=== PATIENT | female | born 1955 | race Caucasian/White ===

== ENCOUNTER 2023-08-31 16:11 | Emergency (ER) | payer OTHER, MEDICAID, SELFPAY ==
[2023-08-31] VITALS (22 sets, daily range): BP systolic 75–116; BP diastolic 46–76; PULSE 50–85; RESP 15–23; TEMP 36.9; O2SAT 97–100; BMI 45.6
--- NOTE | 2023-08-31 16:24 | ED_ITS ---
HPI - Abdominal Pain <Josias Gonzalez PA-C - Last Filed: 09/02/23 15:26> General Chief Complaint: Nausea/Vomiting/Diarrhea Stated Complaint: intestinal parasite/ Time Seen by Provider: 08/31/23 16:17 History of Present Illness HPI narrative: This is a 67-year-old female presents emergency department due to Related Data Home Medications Medication Instructions Recorded Confirmed amlodipine 10 mg tablet 10 mg PO DAILY 08/31/23 08/31/23 aspirin 81 mg chewable tablet 81 mg PO DAILY 08/31/23 08/31/23 (Aspirin Childrens) atorvastatin 40 mg tablet 40 mg PO DAILY 08/31/23 08/31/23 carvedilol 25 mg tablet 50 mg PO BID 08/31/23 08/31/23 losartan 50 mg tablet 50 mg PO BID 08/31/23 08/31/23 omeprazole 20 mg capsule,delayed 20 mg PO BID 08/31/23 08/31/23 release paroxetine HCl 30 mg tablet 60 mg PO DAILY 08/31/23 08/31/23 spironolactone 25 mg tablet 25 mg PO DAILY 08/31/23 08/31/23 Allergies Allergy/AdvReac Type Severity Reaction Status Date / Time codeine Allergy Verified 08/31/23 16:22 <Joleen Matthew DO - Last Filed: 09/03/23 09:53> History of Present Illness HPI narrative: Patient 67-year-old female history of aortic dissection 3 years ago and has been stable, hypertension, depression presents today with ongoing diarrhea. She reports that she has had diarrhea for about 3 months. She says that is not uncommon for her. However over the last 2 weeks she had increased stool but is still only going once a day. She says it has been yellow. She has a fever 2 weeks ago but is afebrile now. She has no abdominal pain nausea or vomiting. Many years ago about 40 years ago she had Giardia but is unclear of the circumstances on how she got it. She has not recently been on antibiotics. She denies any dizziness lightheadedness shortness of breath or chest pain. She initially had a normal blood pressure however while sitting in the ED for 45 minutes blood pressure decreased to 79/53 and remained in the 70s. She is awake alert oriented. She has absolutely no symptoms. She reports that she was in her PCP office on June 27 she has paperwork from that visit and that has a blood pressure of 68/30. She reports that the PCP gave her cracker and let her walk out of there. Review of Systems <Josias Gonzalez PA-C - Last Filed: 09/02/23 15:26> Review of Systems Narrative: GENERAL: Denies chills, fatigue, malaise, fever, sweats. HEENT: Denies sinus pain, ear pain, sore throat, difficulty swallowing, dizziness. RESPIRATORY: Denies dyspnea, cough, wheezing, hemoptysis, sputum. CARDIOVASCULAR: Denies chest pain, palpitations, orthopnea, edema, GASTROINTESTINAL: Denies nausea, vomiting, abdominal pain, diarrhea, constipation, melena. : Denies dysuria, frequency, incontinence, hematuria, urinary retention. MUSCULOSKELETAL: denies weakness, joint pain, or bony pain SKIN: Denies rash, skin lesions, or other NEUROLOGIC: Denies weakness, headache, numbness, change in speech, confusion, seizures, incoordination. PSYCHIATRIC: No concerning psychosocial issues. 12 point review of systems is negative except for those stated above Patient History <Josias Gonzalez PA-C - Last Filed: 09/02/23 15:26> Social History Smoking Status: Unknown if ever smoked Exam <LYSSA Hightower Last Filed: 09/02/23 15:26> Narrative Exam Narrative: GENERAL: Well-developed patient, in mild distress. HEAD: Atraumatic. Normocephalic. EYES: Pupils equal round and reactive. Extraocular motions intact. No scleral icterus. No injection or drainage. ENT: Nose without bleeding, purulent drainage. Throat without erythema, tonsillar hypertrophy or exudate. Airway patent. NECK: Trachea midline. Non tender EXTREMITIES: No edema or joint tenderness. NEURO: AOx3. SKIN: No rash or erythema of visible areas Initial Vital Signs Initial Vital Signs: Vital Signs Temperature 98.5 F 08/31/23 16:13 Pulse Rate 85 08/31/23 16:13 Respiratory Rate 15 08/31/23 16:13 Blood Pressure 116/76 08/31/23 16:13 Pulse Oximetry 100 08/31/23 16:13 Oxygen Delivery Method Room Air 08/31/23 16:13 <Joleen Matthew DO - Last Filed: 09/03/23 09:53> Initial Vital Signs Initial Vital Signs: Vital Signs Temperature 98.5 F 08/31/23 16:13 Pulse Rate 85 08/31/23 16:13 Respiratory Rate 15 08/31/23 16:13 Blood Pressure 116/76 08/31/23 16:13 Pulse Oximetry 100 08/31/23 16:13 Oxygen Delivery Method Room Air 08/31/23 16:13 GENERAL alert pleasant well-appearing 67-year-old female HEENT: Head atraumatic,EOMI, pupils reactive, face symmetric, moist mucous membranes CARDIOVASCULAR: Regular rate and rhythm without murmurs, rubs or gallops. RESPIRATORY: Breath sounds equal bilaterally, no wheezes rales or rhonchi. ABDOMEN: Soft, nontender. Normoactive bowel sounds all 4 quadrants. No guarding or rebound. No pulsatile masses : No CVA tenderness EXTREMITIES: Normal range of motion, no clubbing or edema. Neurovascularly intact NEUROLOGICAL: Alert and oriented x4. SKIN: Warm, dry, no laceration, no petechiae, no rashes or lesions. <Dalila Corrigan MD - Last Filed: 08/31/23 19:46> Initial Vital Signs Initial Vital Signs: Vital Signs Temperature 98.5 F 08/31/23 16:13 Pulse Rate 85 08/31/23 16:13 Respiratory Rate 15 08/31/23 16:13 Blood Pressure 116/76 08/31/23 16:13 Pulse Oximetry 100 08/31/23 16:13 Oxygen Delivery Method Room Air 08/31/23 16:13 Course <Josias Gonzalez PA-C - Last Filed: 09/02/23 15:26> Orders Ordered: Discontinued Medications Sodium Chloride (Normal Saline 0.9%) 1,000 mls @ 1,000 mls/hr IV BOLUS ONE Stop: 08/31/23 18:16 Last Infusion: 08/31/23 18:39 Dose: Infused Documented By: Admin: 08/31/23 17:30 Dose: 1,000 mls/hr Documented By: SEKOU Vital Signs Vital signs: Vital Signs - 8 hr 08/31/23 16:13 08/31/23 16:41 08/31/23 16:41 Temperature 98.5 F Pulse Rate 85 60 Respiratory Rate 15 Blood Pressure 116/76 103/55 L Pulse Oximetry 100 97 Oxygen Delivery Method Room Air 08/31/23 17:00 08/31/23 17:00 08/31/23 17:02 Temperature Pulse Rate 54 L 57 L Respiratory Rate Blood Pressure 79/53 L Pulse Oximetry 97 97 Oxygen Delivery Method 08/31/23 17:02 08/31/23 17:04 08/31/23 17:04 Temperature Pulse Rate 58 L Respiratory Rate Blood Pressure 77/47 L 75/50 L Pulse Oximetry 97 Oxygen Delivery Method 08/31/23 17:07 08/31/23 17:07 08/31/23 17:15 Temperature Pulse Rate 60 53 L Respiratory Rate Blood Pressure 78/50 L Pulse Oximetry 98 98 Oxygen Delivery Method 08/31/23 17:30 08/31/23 17:31 08/31/23 17:31 Temperature Pulse Rate 52 L 51 L Respiratory Rate 16 23 Blood Pressure 97/52 L Pulse Oximetry 100 99 Oxygen Delivery Method 08/31/23 17:45 08/31/23 18:00 08/31/23 18:00 Temperature Pulse Rate 50 L 50 L Respiratory Rate 16 15 Blood Pressure 105/56 L Pulse Oximetry 100 100 Oxygen Delivery Method Room Air 08/31/23 18:15 08/31/23 18:30 08/31/23 18:31 Temperature Pulse Rate 50 L 50 L Respiratory Rate 16 15 Blood Pressure 111/58 L Pulse Oximetry 100 100 Oxygen Delivery Method 08/31/23 18:31 Temperature Pulse Rate 50 L Respiratory Rate 16 Blood Pressure Pulse Oximetry 100 Oxygen Delivery Method Room Air <Joleen Matthew, DO - Last Filed: 09/03/23 09:53> Orders Ordered: Discontinued Medications Sodium Chloride (Normal Saline 0.9%) 1,000 mls @ 1,000 mls/hr IV BOLUS ONE Stop: 08/31/23 18:16 Last Infusion: 08/31/23 18:39 Dose: Infused Documented By: Admin: 08/31/23 17:30 Dose: 1,000 mls/hr Documented By: SEKOU Vital Signs Vital signs: Vital Signs - 8 hr 08/31/23 16:13 08/31/23 16:41 08/31/23 16:41 Temperature 98.5 F Pulse Rate 85 60 Respiratory Rate 15 Blood Pressure 116/76 103/55 L Pulse Oximetry 100 97 Oxygen Delivery Method Room Air 08/31/23 17:00 08/31/23 17:00 08/31/23 17:02 Temperature Pulse Rate 54 L 57 L Respiratory Rate Blood Pressure 79/53 L Pulse Oximetry 97 97 Oxygen Delivery Method 08/31/23 17:02 08/31/23 17:04 08/31/23 17:04 Temperature Pulse Rate 58 L Respiratory Rate Blood Pressure 77/47 L 75/50 L Pulse Oximetry 97 Oxygen Delivery Method 08/31/23 17:07 08/31/23 17:07 08/31/23 17:15 Temperature Pulse Rate 60 53 L Respiratory Rate Blood Pressure 78/50 L Pulse Oximetry 98 98 Oxygen Delivery Method 08/31/23 17:30 08/31/23 17:31 08/31/23 17:31 Temperature Pulse Rate 52 L 51 L Respiratory Rate 16 23 Blood Pressure 97/52 L Pulse Oximetry 100 99 Oxygen Delivery Method 08/31/23 17:45 08/31/23 18:00 08/31/23 18:00 Temperature Pulse Rate 50 L 50 L Respiratory Rate 16 15 Blood Pressure 105/56 L Pulse Oximetry 100 100 Oxygen Delivery Method Room Air 08/31/23 18:15 08/31/23 18:30 08/31/23 18:31 Temperature Pulse Rate 50 L 50 L Respiratory Rate 16 15 Blood Pressure 111/58 L Pulse Oximetry 100 100 Oxygen Delivery Method 08/31/23 18:31 Temperature Pulse Rate 50 L Respiratory Rate 16 Blood Pressure Pulse Oximetry 100 Oxygen Delivery Method Room Air <Dalila Corrigan MD - Last Filed: 08/31/23 19:46> Orders Ordered: Discontinued Medications Sodium Chloride (Normal Saline 0.9%) 1,000 mls @ 1,000 mls/hr IV BOLUS ONE Stop: 08/31/23 18:16 Last Infusion: 08/31/23 18:39 Dose: Infused Documented By: Admin: 08/31/23 17:30 Dose: 1,000 mls/hr Documented By: SEKOU Vital Signs Vital signs: Vital Signs - 8 hr 08/31/23 16:13 08/31/23 16:41 08/31/23 16:41 Temperature 98.5 F Pulse Rate 85 60 Respiratory Rate 15 Blood Pressure 116/76 103/55 L Pulse Oximetry 100 97 Oxygen Delivery Method Room Air 08/31/23 17:00 08/31/23 17:00 08/31/23 17:02 Temperature Pulse Rate 54 L 57 L Respiratory Rate Blood Pressure 79/53 L Pulse Oximetry 97 97 Oxygen Delivery Method 08/31/23 17:02 08/31/23 17:04 08/31/23 17:04 Temperature Pulse Rate 58 L Respiratory Rate Blood Pressure 77/47 L 75/50 L Pulse Oximetry 97 Oxygen Delivery Method 08/31/23 17:07 08/31/23 17:07 08/31/23 17:15 Temperature Pulse Rate 60 53 L Respiratory Rate Blood Pressure 78/50 L Pulse Oximetry 98 98 Oxygen Delivery Method 08/31/23 17:30 08/31/23 17:31 08/31/23 17:31 Temperature Pulse Rate 52 L 51 L Respiratory Rate 16 23 Blood Pressure 97/52 L Pulse Oximetry 100 99 Oxygen Delivery Method 08/31/23 17:45 08/31/23 18:00 08/31/23 18:00 Temperature Pulse Rate 50 L 50 L Respiratory Rate 16 15 Blood Pressure 105/56 L Pulse Oximetry 100 100 Oxygen Delivery Method Room Air 08/31/23 18:15 08/31/23 18:30 08/31/23 18:31 Temperature Pulse Rate 50 L 50 L Respiratory Rate 16 15 Blood Pressure 111/58 L Pulse Oximetry 100 100 Oxygen Delivery Method 08/31/23 18:31 Temperature Pulse Rate 50 L Respiratory Rate 16 Blood Pressure Pulse Oximetry 100 Oxygen Delivery Method Room Air MDM - Abdominal Pain <Josias Gonzalez PA-C - Last Filed: 09/02/23 15:26> Lab Data 08/31/23 16:25 08/31/23 16:25 Labs: Lab Results 08/31/23 08/31/23 Range/Units 16:25 18:25 WBC 7.9 (4.5-11.0) X10^3/uL RBC 4.72 (4.0-5.2) X10^6/uL Hgb 13.5 (12.0-16.0) g/dL Hct 40.6 (36-46) % MCV 86.0 (80-100) fL MCH 28.6 (26-34) PG MCHC 33.2 (30-36) % RDW 15.1 H (11.6-14.8) % Plt Count 234 (150-400) X10^3/uL Neut % (Auto) 60.1 (50-75) % Lymph % (Auto) 27.0 (25-40) % [place] % (Auto) 6.6 (3-14) % Eos % (Auto) 4.6 H (2-4) % Baso % (Auto) 1.7 (0-2) % Neut # (Auto) 4800 (7123-0086) /uL Lymph # (Auto) 2100 (8639-9890) /uL [place] # (Auto) 500 (0-900) /uL Eos # (Auto) 400 (0-450) /uL Baso # (Auto) 100 (0-100) /uL Sodium 137 (137-145) mmol/L Potassium 4.1 (3.4-5.1) mmol/L Chloride 104 (98-107) mmol/L Carbon Dioxide 24 (22-32) mmol/L BUN 21 H (7-17) mg/dL Creatinine 1.45 H (0.52-1.04) mg/dL Estimated GFR 40 L (>60) mL/min BUN/Creatinine Ratio 14.5 (6-22) Glucose 115 H (80-110) mg/dL Lactate 2.6 H 1.1 (0.7-2.1) mmol/L Calcium 9.1 (8.4-10.2) mg/dL Total Bilirubin 0.9 (0.2-1.3) mg/dL AST 31 (14-36) IU/L ALT 33 (<35) IU/L Alkaline Phosphatase 76 (38-126) U/L Total Creatine Kinase 30 (30-135) U/L Troponin I < 0.012 (0.01-0.034) ng/mL Total Protein 7.6 (6.3-8.2) g/dL Albumin 4.2 (3.5-5.0) g/dL Globulin 3.4 (1.7-4.1) g/dL Albumin/Globulin Ratio 1.2 (1.0-2.8) MDM Narrative Medical decision making narrative: ED course: [ ] CC: [ ] Complicating co-morbidities: [ ] Data collected from: Previous notes Medical records reviewed: Patient has not been to this emergency department in the past. Differential considered, but not limited to: [ ] Exam documented above, pertinent findings include: [ ] Lab Test results independently reviewed as above. Pertinent findings: [ ] Imaging studies independently reviewed: [ ] Scores Used: None MIPS Elements: None Consultations: None Treatments: [ ] Re-evaluations: [ ] Discussion: Discussed plan with the patient was comfortable with the plan Diagnosis: [ ] Disposition: see below, along with detailed discharge instructions that have been reviewed with patient as well as indications for ED re-evaluation and additional outpatient follow up <Joleen DO Vipul - Last Filed: 09/03/23 09:53> Lab Data Labs: Lab Results 08/31/23 08/31/23 Range/Units 16:25 18:25 WBC 7.9 (4.5-11.0) X10^3/uL RBC 4.72 (4.0-5.2) X10^6/uL Hgb 13.5 (12.0-16.0) g/dL Hct 40.6 (36-46) % MCV 86.0 (80-100) fL MCH 28.6 (26-34) PG MCHC 33.2 (30-36) % RDW 15.1 H (11.6-14.8) % Plt Count 234 (150-400) X10^3/uL Neut % (Auto) 60.1 (50-75) % Lymph % (Auto) 27.0 (25-40) % [place] % (Auto) 6.6 (3-14) % Eos % (Auto) 4.6 H (2-4) % Baso % (Auto) 1.7 (0-2) % Neut # (Auto) 4800 (8664-5595) /uL Lymph # (Auto) 2100 (1580-1968) /uL [place] # (Auto) 500 (0-900) /uL Eos # (Auto) 400 (0-450) /uL Baso # (Auto) 100 (0-100) /uL Sodium 137 (137-145) mmol/L Potassium 4.1 (3.4-5.1) mmol/L Chloride 104 (98-107) mmol/L Carbon Dioxide 24 (22-32) mmol/L BUN 21 H (7-17) mg/dL Creatinine 1.45 H (0.52-1.04) mg/dL Estimated GFR 40 L (>60) mL/min BUN/Creatinine Ratio 14.5 (6-22) Glucose 115 H (80-110) mg/dL Lactate 2.6 H 1.1 (0.7-2.1) mmol/L Calcium 9.1 (8.4-10.2) mg/dL Total Bilirubin 0.9 (0.2-1.3) mg/dL AST 31 (14-36) IU/L ALT 33 (<35) IU/L Alkaline Phosphatase 76 (38-126) U/L Total Creatine Kinase 30 (30-135) U/L Troponin I < 0.012 (0.01-0.034) ng/mL Total Protein 7.6 (6.3-8.2) g/dL Albumin 4.2 (3.5-5.0) g/dL Globulin 3.4 (1.7-4.1) g/dL Albumin/Globulin Ratio 1.2 (1.0-2.8) ECG Data Interpretation: Sinus rhythm rate 55 PA interval [address] changes MDM Narrative Medical decision making narrative: ED course: [ ] CC: Diarrhea worse over the last 2 weeks Complicating co-morbidities: Aortic dissection Data collected from: Previous notes Medical records reviewed: Patient has not been to this emergency department in the past. Differential considered, but not limited to: [ ] Exam documented above, pertinent findings include: Abdomen soft nontender Lab Test results independently reviewed as above. Pertinent findings: Lactate 2.6, BUN 21 creatinine 1.45, glucose 115 potassium 4.1 Imaging studies independently reviewed: [ ] Scores Used: None MIPS Elements: None Consultations: None Treatments: IV fluids Re-evaluations: Blood pressure does improve with IV fluids Discussion: Discussed plan with the patient was comfortable with the plan Diagnosis: [ ] Disposition: see below, along with detailed discharge instructions that have been reviewed with patient as well as indications for ED re-evaluation and additional outpatient follow up Dr. Matthew-patient is presenting today with diarrhea 1 episode daily ongoing for 1 week. Initial blood pressure was normal however repeats do show a significant drop however she is completely asymptomatic. She has a documented previous blood pressure from her PCP offices of 68/30. I believe this is likely due to over medication with hypertension med. Lactate is slightly elevated. Patient signed out to Dr. Corrigan for follow-up lactate and blood pressure and final disposition <Dalila Corrigan MD - Last Filed: 08/31/23 19:46> Lab Data Labs: Lab Results 08/31/23 08/31/23 Range/Units 16:25 18:25 WBC 7.9 (4.5-11.0) X10^3/uL RBC 4.72 (4.0-5.2) X10^6/uL Hgb 13.5 (12.0-16.0) g/dL Hct 40.6 (36-46) % MCV 86.0 (80-100) fL MCH 28.6 (26-34) PG MCHC 33.2 (30-36) % RDW 15.1 H (11.6-14.8) % Plt Count 234 (150-400) X10^3/uL Neut % (Auto) 60.1 (50-75) % Lymph % (Auto) 27.0 (25-40) % [place] % (Auto) 6.6 (3-14) % Eos % (Auto) 4.6 H (2-4) % Baso % (Auto) 1.7 (0-2) % Neut # (Auto) 4800 (9578-8311) /uL Lymph # (Auto) 2100 (9711-3405) /uL [place] # (Auto) 500 (0-900) /uL Eos # (Auto) 400 (0-450) /uL Baso # (Auto) 100 (0-100) /uL Sodium 137 (137-145) mmol/L Potassium 4.1 (3.4-5.1) mmol/L Chloride 104 (98-107) mmol/L Carbon Dioxide 24 (22-32) mmol/L BUN 21 H (7-17) mg/dL Creatinine 1.45 H (0.52-1.04) mg/dL Estimated GFR 40 L (>60) mL/min BUN/Creatinine Ratio 14.5 (6-22) Glucose 115 H (80-110) mg/dL Lactate 2.6 H 1.1 (0.7-2.1) mmol/L Calcium 9.1 (8.4-10.2) mg/dL Total Bilirubin 0.9 (0.2-1.3) mg/dL AST 31 (14-36) IU/L ALT 33 (<35) IU/L Alkaline Phosphatase 76 (38-126) U/L Total Creatine Kinase 30 (30-135) U/L Troponin I < 0.012 (0.01-0.034) ng/mL Total Protein 7.6 (6.3-8.2) g/dL Albumin 4.2 (3.5-5.0) g/dL Globulin 3.4 (1.7-4.1) g/dL Albumin/Globulin Ratio 1.2 (1.0-2.8) MDM Narrative Medical decision making narrative: ED course: [ ] CC: Diarrhea worse over the last 2 weeks Complicating co-morbidities: Aortic dissection Data collected from: Previous notes Medical records reviewed: Patient has not been to this emergency department in the past. Differential considered, but not limited to: [ ] Exam documented above, pertinent findings include: Abdomen soft nontender Lab Test results independently reviewed as above. Pertinent findings: Lactate 2.6, BUN 21 creatinine 1.45, glucose 115 potassium 4.1 Imaging studies independently reviewed: [ ] Scores Used: None MIPS Elements: None Consultations: None Treatments: IV fluids Re-evaluations: Blood pressure does improve with IV fluids Discussion: Discussed plan with the patient was comfortable with the plan Diagnosis: [ ] Disposition: see below, along with detailed discharge instructions that have been reviewed with patient as well as indications for ED re-evaluation and additional outpatient follow up Dr. Matthew-patient is presenting today with diarrhea 1 episode daily ongoing for 1 week. Initial blood pressure was normal however repeats do show a significant drop however she is completely asymptomatic. She has a documented previous blood pressure from her PCP offices of 68/30. I believe this is likely due to over medication with hypertension med. Lactate is slightly elevated. Patient signed out to Dr. Corrigan for follow-up lactate and blood pressure and final disposition [id number] Dr Corrigan Patient is seen and evaluated. Chart is reviewed. Patient's primary concern is diarrhea and a fever most of which was well over 2 weeks ago and seems to be resolving. There was no evidence of invasive infection or dramatic electrolyte abnormalities. She was given IV fluids and is feeling better. She was unable to provide a stool sample in the emergency department. Describes 1 very loose stool typically in the morning now. I suggested that she follow up with her primary care doctor for outpatient review and stool studies. Incidentally appreciated significant hypotension. Does look like this has been an issue for her. She is currently on 3 specific hypertensive medications as well as spironolactone. She has an appointment with her vascular surgeon next week. His goal for her blood pressure was systolics in the 100-105 range and not higher than 120. Systolic seemed to have been in the 70s and is high as 110 after fluids were given today. We will ask her to hold her 10 mg of amlodipine and check blood pressures. Recommended checking 2 hours after medications in the morning and an hour so before bedtime. Recording these numbers in reviewing the blood pressure readings as well as medications with her vascular surgeon with her visit next week. At this time there is no indication for additional imaging, workup or hospitalization. Questions are answered and she is safe for discharge Discharge Plan Departure Patient Disposition: Home Clinical Impression: Chronic hypotension Diarrhea Qualifiers: Diarrhea type: unspecified type Qualified Code(s): R19.7 - Diarrhea, unspecified Instructions: DI for Diarrhea and Traveler's Diarrhea -- Adult Activity Restrictions/Additional Instructions: Thank you for coming in today Regarding your diarrhea, with the fever and the profuse watery diarrhea resolved, it may be that you had a viral gastroenteritis that is beginning to improve. You may be still having morning loose stool secondary to your prior cholecystectomy. If this continues please talk to your primary care provider about providing a stool sample for testing Regarding your low blood pressure. With your prior aortic dissection systolic blood pressure goal of 100-105 is very reasonable. Systolic blood pressure readings of 70-90 along with your severe fatigue are probably lower than they need to be. You were slightly dehydrated on arrival in the emergency department however there were not dramatic electrolyte or kidney abnormalities appreciated on blood work. I am going to suggest that you stop your amlodipine Please keep track of your blood pressure with readings approximately 2-3 hours after medications taken in the morning and an hour or so before bedtime at night. Please make sure you take these readings into your vascular surgeon appointment next week along with the recommendations to hold the amlodipine so that he can give you recommendations based on data. Please note blood pressure reading in the primary care office was 68/30. In the emergency department was 75/50 and got up as high as 110/58 immediately after 1 L fluid bolus. If you find that you are getting worse or develop any new symptoms, please feel free to return to the emergency department for further evaluation. Prescriptions: No Action losartan 50 mg tablet 50 mg PO BID atorvastatin 40 mg tablet 40 mg PO DAILY carvedilol 25 mg tablet 50 mg PO BID spironolactone 25 mg tablet 25 mg PO DAILY amlodipine 10 mg tablet 10 mg PO DAILY paroxetine HCl 30 mg tablet 60 mg PO DAILY omeprazole 20 mg Capsule,Delayed Release(Dr/Ec) 20 mg PO BID aspirin [Aspirin Childrens] 81 mg Tablet,Chewable 81 mg PO DAILY Referrals: Katie Tate MD [Primary Care Provider] - Stand Alone Forms: Patient Portal/API
[2023-08-31 16:49] LABS: Add Manual Diff / Slide Review NO; Basophils Absolute Auto 100 /uL (0-100); Basophils Percent Auto 1.7 % (0-2); Eosinophils Absolute Auto 400 /uL (0-450); Eosinophils Percent Auto 4.6 % (2-4); Hematocrit 40.6 % (36-46); Hemoglobin 13.5 g/dL (12.0-16.0); Lymphocytes Absolute Auto 2100 /uL (1100-4500); Mean Corpuscular HGB Conc 33.2 % (30-36); Mean Corpuscular Hemoglobin 28.6 PG (26-34); Monocytes Absolute Auto 500 /uL (0-900); Monocytes Percent Auto 6.6 % (3-14); Neutrophils Absolute Auto 4800 /uL (1500-7000); Neutrophils Percent Auto 60.1 % (50-75); Platelet Count 234 X10^3/uL (150-400); Red Blood Cell Count 4.72 X10^6/uL (4.0-5.2); Red Cell Distribution Width 15.1 % (11.6-14.8); White Blood Cell Count 7.9 X10^3/uL (4.5-11.0)
[2023-08-31 17:00] LABS: Alanine Aminotransferase 33 IU/L (<35); Albumin 4.2 g/dL (3.5-5.0); Albumin Globulin Ratio 1.2 (1.0-2.8); Alkaline Phosphatase 76 U/L (38-126); Aspartate Aminotransferase 31 IU/L (14-36); BUN Creatinine Ratio 14.5 (6-22); Bilirubin Total 0.9 mg/dL (0.2-1.3); Blood Urea Nitrogen 21 mg/dL (7-17); Calcium 9.1 mg/dL (8.4-10.2); Carbon Dioxide 24 mmol/L (22-32); Chloride 104 mmol/L (98-107); Estimated Glomerular Filt Rate 40 mL/min (>60); Globulin 3.4 g/dL (1.7-4.1); Glucose 115 mg/dL (80-110); HEMOLYSIS < 15 (0-50); Potassium 4.1 mmol/L (3.4-5.1); Sodium 137 mmol/L (137-145); Total Protein 7.6 g/dL (6.3-8.2)
[2023-08-31] MEDS: SODIUM CHLORIDE 0.9% 1,000 ML 1000 ML IV (17:30)
[2023-08-31 17:46] LABS: Creatine Kinase 30 U/L (30-135); Lactate (Lactic Acid) 2.6 mmol/L (0.7-2.1)
[2023-08-31 17:59] LABS: Troponin I < 0.012 ng/mL (0.01-0.034)
[2023-08-31 19:05] LABS: Lactate (Lactic Acid) 1.1 mmol/L (0.7-2.1)
[2023-08-31 19:11] LABS: Reflexed Lactate in 2 Hours Y
== END 2023-08-31 19:57 | disposition home or self-care (01) ==
PROVIDERS: Emergency Medicine; Emergency Provider Emergency Medicine; PCP Internal Medicine
DX: I95.9 Hypotension, unspecified (principal); R19.7 Diarrhea, unspecified; R07.9 Chest pain, unspecified
CPT/HCPCS: 80053; 82550; 83605; 84484; 85025; 93005; 93010; 96360; 99283; 99284